=== PATIENT | male | born 1995 | race Caucasian/White ===

== ENCOUNTER → 2016-10-15 | Outpatient (CLI) | payer OTHER ==
--- NOTE | 2016-10-15 14:15 | DIAGNOSTIC IMAGING REPORT ---
FUSION CT SINUSES W/O HISTORY: RECURRENT ACUTE SINUSITIS TECHNIQUE: Multiaxial CT images of the sinuses were performed and reformatted in the coronal plane without the use of contrast. COMPARISON STUDY: None. FINDINGS: The frontal sinuses, ethmoid air cells, sphenoid sinuses, and mastoid air cells are clear. There are single retention cysts within the floor of the bilateral maxillary sinuses with the largest on the right measuring 1.9 cm. No fluid levels within the paranasal sinuses. No evidence for carotid canal dehiscence. Mild leftward deviation of the nasal septum with a small left-sided nasal spur. The bandar corey is pneumatized. The lamina papyracea and orbital floors are intact. The bilateral ostomy units are patent. Partial bony septa within the bilateral maxillary sinuses anteriorly. The pterygopalatine fossa are maintained. The orbits and visualized brain parenchyma are within normal limits. IMPRESSION: 1. Small retention cysts within the bilateral maxillary sinuses. 2. No fluid levels within the paranasal sinuses. 3. The mastoid air cells are clear. 4. Mild left nasal septal deviation. Electronically signed by: Michael Manuel M.D. 10/15/2016 2:13 PM Dictated Date/Time: 10/15/2016 2:08 PM
== END | disposition home or self-care (01) ==
LOC: C.CTS 13:55
DX: J01.91 Acute recurrent sinusitis, unspecified (principal)